=== PATIENT | female | born 1955 | race Two or more races ===

== ENCOUNTER 2020-06-15 13:24 | Outpatient (CLI) | payer MEDICARE, OTHER ==
[2020-06-15 14:41] LABS: APPEARANCE,URINE CLEAR (CLEAR); BILIRUBIN,URINE NEGATIVE (NEGATIVE); BLOOD, URINE LARGE Ery/uL (NEGATIVE); COLOR,URINE YELLOW (YELLOW); KETONES,URINE NEGATIVE (NEGATIVE); LEUKOCYTE ESTERASE ,URINE SMALL (NEGATIVE); NITRITE, URINE NEGATIVE (NEGATIVE); PROTEIN,URINE 100 mg/dl (NEGATIVE); UGLUCOSE NEGATIVE (NEGATIVE); UROBILINOGEN,URINE 0.2 EU/dL (0.2)
[2020-06-15 14:48] LABS: BASOPHILS % (AUTO) 0.5 % (0.0-2.0); EOSINOPHILS % (AUTO) 1.2 % (0.0-6.0); HEMATOCRIT 27 % (33-45); HEMOGLOBIN 8.8 g/dL (11.5-14.8); LYMPHOCYTES # (AUTO) 0.6 /CMM (0.8-4.8); LYMPHOCYTES % (AUTO) 10.8 % (20.0-44.0); MEAN CORPUSCULAR HGB CONC 33 g/dl (31.0-36.0); MEAN CORPUSCULAR VOLUME 99 fL (82-100); MONOCYTES # (AUTO) 0.4 /CMM (0.1-1.30); MONOCYTES % (AUTO) 6.5 % (2.0-12.0); NEUTROPHILS # (AUTO) 4.6 /CMM (1.8-8.9); PLATELET COUNT (AUTO) 250 /CMM (150-450); RED BLOOD CELL COUNT(AUTO) 2.68 MIL/uL (4.0-5.2); WHITE BLOOD COUNT (AUTO) 5.7 K/uL (4.3-11.0)
[2020-06-15 14:56] LABS: RBC,URINE 21-50 /HPF (0-2)
[2020-06-15 14:57] LABS: BACTERIA,URINE 3+ /HPF (None Seen); SQUAMOUS EPITHELIAL CELL,UR 0-2 /HPF (None Seen); WBC,URINE 21-50 /HPF (0-3)
[2020-06-15 15:13] LABS: CALCIUM, SERUM 8.8 mg/dL (8.5-10.1); CREATININE 1.9 mg/dL (0.6-1.3); MAGNESIUM 2.3 mg/dL (1.8-2.4); PHOSPHORUS 4.4 mg/dL (2.5-4.9); POTASSIUM 5.2 mmol/L (3.5-5.1)
== END 2020-06-15 23:59 | disposition home or self-care (01) ==
LOC: MSC 13:24
PROVIDERS: ATTEND Internal Medicine
DX: I12.9 Hypertensive chronic kidney disease with stage 1 through stage 4 chronic kidney disease, or unspecified chronic kidney disease (principal); N18.3 Chronic kidney disease, stage 3 (moderate); L97.929 Non-pressure chronic ulcer of unspecified part of left lower leg with unspecified severity; R80.9 Proteinuria, unspecified; D47.2 Monoclonal gammopathy; D64.9 Anemia, unspecified; G62.9 Polyneuropathy, unspecified; J30.9 Allergic rhinitis, unspecified; R31.9 Hematuria, unspecified; Z79.899 Other long term (current) drug therapy
CPT/HCPCS: 36415; 80048; 81001; 83735; 84100; 85025; 87086; G0463; 81000-TC

== ENCOUNTER 2021-02-19 11:34 | Outpatient (CLI) | payer MEDICARE, OTHER ==
[2021-02-19 12:54] LABS: BASOPHILS % (AUTO) 0.6 % (0.0-2.0); EOSINOPHILS % (AUTO) 0.3 % (0.0-6.0); HEMATOCRIT 28 % (33-45); HEMOGLOBIN 9.1 g/dL (11.5-14.8); LYMPHOCYTES # (AUTO) 0.6 /CMM (0.8-4.8); LYMPHOCYTES % (AUTO) 9.4 % (20.0-44.0); MEAN CORPUSCULAR HGB CONC 33 g/dl (31.0-36.0); MEAN CORPUSCULAR VOLUME 98 fL (82-100); MONOCYTES # (AUTO) 0.4 /CMM (0.1-1.30); MONOCYTES % (AUTO) 5.9 % (2.0-12.0); NEUTROPHILS % (AUTO) 83.8 % (43.0-81.0); PLATELET COUNT (AUTO) 222 /CMM (150-450); RED BLOOD CELL COUNT(AUTO) 2.81 MIL/uL (4.0-5.2)
[2021-02-19 13:35] LABS: ALBUMIN 2.9 g/dL (3.4-5.0); BILIRUBIN,TOTAL 0.5 mg/dL (0.2-1.0); CALCIUM, SERUM 8.8 mg/dL (8.5-10.1); CREATININE 2.4 mg/dL (0.6-1.3); MAGNESIUM 2.2 mg/dL (1.8-2.4); PHOSPHORUS 4.7 mg/dL (2.5-4.9); POTASSIUM 4.6 mmol/L (3.5-5.1); TOTAL PROTEIN, SERUM 6.8 g/dL (6.4-8.2)
== END 2021-02-19 23:59 | disposition home or self-care (01) ==
LOC: MSC 11:34
PROVIDERS: ATTEND Internal Medicine
DX: I12.9 Hypertensive chronic kidney disease with stage 1 through stage 4 chronic kidney disease, or unspecified chronic kidney disease (principal); N18.30 Chronic kidney disease, stage 3 unspecified; R80.9 Proteinuria, unspecified; D47.2 Monoclonal gammopathy; D50.9 Iron deficiency anemia, unspecified; G62.9 Polyneuropathy, unspecified; J30.9 Allergic rhinitis, unspecified; R31.9 Hematuria, unspecified; Z87.828 Personal history of other (healed) physical injury and trauma; Z79.01 Long term (current) use of anticoagulants; Z79.891 Long term (current) use of opiate analgesic; Z79.52 Long term (current) use of systemic steroids; Z79.899 Other long term (current) drug therapy
CPT/HCPCS: 36415; 80053; 83735; 84100; 85025; G0463

== ENCOUNTER 2021-09-26 11:11 | Outpatient (CLI) | payer MEDICARE, OTHER | END 2021-09-26 23:59 | disposition home or self-care (01) | LOC: MSC 11:11 | PROVIDERS: ATTEND Internal Medicine | DX: M79.641 Pain in right hand (principal); M54.10 Radiculopathy, site unspecified; F32.A Depression, unspecified; S91.109D Unspecified open wound of unspecified toe(s) without damage to nail, subsequent encounter; I12.9 Hypertensive chronic kidney disease with stage 1 through stage 4 chronic kidney disease, or unspecified chronic kidney disease; N18.30 Chronic kidney disease, stage 3 unspecified; R80.9 Proteinuria, unspecified; D47.2 Monoclonal gammopathy; D50.9 Iron deficiency anemia, unspecified; G62.9 Polyneuropathy, unspecified; R31.9 Hematuria, unspecified; Z87.828 Personal history of other (healed) physical injury and trauma; Z79.01 Long term (current) use of anticoagulants; Z79.891 Long term (current) use of opiate analgesic; Z79.52 Long term (current) use of systemic steroids; Z79.899 Other long term (current) drug therapy ==

== ENCOUNTER 2021-10-10 11:37 | Outpatient (CLI) | payer MEDICARE, OTHER | END 2021-10-10 23:59 | disposition home or self-care (01) | LOC: MRI 11:37 | PROVIDERS: ATTEND Internal Medicine | DX: M47.22 Other spondylosis with radiculopathy, cervical region (principal); M50.11 Cervical disc disorder with radiculopathy, high cervical region; M43.12 Spondylolisthesis, cervical region; M48.02 Spinal stenosis, cervical region | CPT/HCPCS: 72141-TC ==

== ENCOUNTER → 2021-12-13 | Outpatient (CLI) | payer MEDICARE, OTHER | END | disposition home or self-care (01) | LOC: MSC 09:45 | PROVIDERS: ATTEND Internal Medicine | DX: K59.03 Drug induced constipation (principal); G89.29 Other chronic pain; I12.9 Hypertensive chronic kidney disease with stage 1 through stage 4 chronic kidney disease, or unspecified chronic kidney disease; N18.30 Chronic kidney disease, stage 3 unspecified; M79.641 Pain in right hand; M54.10 Radiculopathy, site unspecified; F32.A Depression, unspecified; R80.9 Proteinuria, unspecified; D47.2 Monoclonal gammopathy; D50.9 Iron deficiency anemia, unspecified; S91.001D Unspecified open wound, right ankle, subsequent encounter; R31.9 Hematuria, unspecified; Z79.01 Long term (current) use of anticoagulants; G62.9 Polyneuropathy, unspecified; Z79.899 Other long term (current) drug therapy ==

== ENCOUNTER 2021-12-17 09:45 | Outpatient (CLI) | payer MEDICARE, OTHER | END 2021-12-17 23:59 | disposition home or self-care (01) | LOC: MSC 09:45 | PROVIDERS: ATTEND Internal Medicine | DX: K59.00 Constipation, unspecified (principal); G89.29 Other chronic pain; I12.9 Hypertensive chronic kidney disease with stage 1 through stage 4 chronic kidney disease, or unspecified chronic kidney disease; N18.30 Chronic kidney disease, stage 3 unspecified; M79.601 Pain in right arm; M54.10 Radiculopathy, site unspecified; F32.A Depression, unspecified; R80.9 Proteinuria, unspecified; D47.2 Monoclonal gammopathy; D50.9 Iron deficiency anemia, unspecified; S91.001D Unspecified open wound, right ankle, subsequent encounter; R31.9 Hematuria, unspecified; Z79.01 Long term (current) use of anticoagulants; Z79.899 Other long term (current) drug therapy ==

== ENCOUNTER → 2021-12-19 | Outpatient (CLI) | payer MEDICARE, OTHER | END | disposition home or self-care (01) | LOC: MSC 12:00 | PROVIDERS: ATTEND Internal Medicine | DX: D50.8 Other iron deficiency anemias (principal); K59.00 Constipation, unspecified; G89.29 Other chronic pain; I12.9 Hypertensive chronic kidney disease with stage 1 through stage 4 chronic kidney disease, or unspecified chronic kidney disease; N18.30 Chronic kidney disease, stage 3 unspecified; M79.601 Pain in right arm; M54.10 Radiculopathy, site unspecified; F32.A Depression, unspecified; R80.9 Proteinuria, unspecified; D47.2 Monoclonal gammopathy; S91.001D Unspecified open wound, right ankle, subsequent encounter; R31.9 Hematuria, unspecified; Z79.01 Long term (current) use of anticoagulants; G62.9 Polyneuropathy, unspecified; Z79.899 Other long term (current) drug therapy ==

== ENCOUNTER → 2021-12-24 | Outpatient (CLI) | payer MEDICARE, OTHER | END | disposition home or self-care (01) | LOC: MSC 14:00 | PROVIDERS: ATTEND Internal Medicine | DX: D64.89 Other specified anemias (principal); K59.03 Drug induced constipation; T40.605D Adverse effect of unspecified narcotics, subsequent encounter; G89.29 Other chronic pain; I12.9 Hypertensive chronic kidney disease with stage 1 through stage 4 chronic kidney disease, or unspecified chronic kidney disease; N18.30 Chronic kidney disease, stage 3 unspecified; M79.601 Pain in right arm; M54.10 Radiculopathy, site unspecified; F32.A Depression, unspecified; R80.9 Proteinuria, unspecified; D47.2 Monoclonal gammopathy; S91.001D Unspecified open wound, right ankle, subsequent encounter; R31.9 Hematuria, unspecified; Z79.01 Long term (current) use of anticoagulants; G62.9 Polyneuropathy, unspecified; Z79.899 Other long term (current) drug therapy ==

== ENCOUNTER 2022-01-23 11:08 | Outpatient (CLI) | payer MEDICARE, OTHER ==
[2022-01-23 18:34] LABS: ALBUMIN 2.8 g/dL (3.4-5.0); BILIRUBIN,TOTAL 0.2 mg/dL (0.2-1.0); CREATININE 2.5 mg/dL (0.6-1.3); TOTAL PROTEIN, SERUM 6.2 g/dL (6.4-8.2)
== END 2022-01-23 23:59 | disposition home or self-care (01) ==
LOC: MSC 11:08
PROVIDERS: ATTEND Internal Medicine
DX: D64.89 Other specified anemias (principal); I95.9 Hypotension, unspecified; R73.9 Hyperglycemia, unspecified; K59.03 Drug induced constipation; T40.605D Adverse effect of unspecified narcotics, subsequent encounter; G89.29 Other chronic pain; I12.9 Hypertensive chronic kidney disease with stage 1 through stage 4 chronic kidney disease, or unspecified chronic kidney disease; N18.30 Chronic kidney disease, stage 3 unspecified; M79.601 Pain in right arm; M54.10 Radiculopathy, site unspecified; F32.A Depression, unspecified; R80.9 Proteinuria, unspecified; D47.2 Monoclonal gammopathy; S91.001D Unspecified open wound, right ankle, subsequent encounter; G62.9 Polyneuropathy, unspecified; R31.9 Hematuria, unspecified; Z79.01 Long term (current) use of anticoagulants; Z79.899 Other long term (current) drug therapy
CPT/HCPCS: 36415; 80053; 83036; G0463

== ENCOUNTER → 2022-01-30 | Outpatient (CLI) | payer MEDICARE, OTHER | END | disposition home or self-care (01) | LOC: MSC 14:00 | PROVIDERS: ATTEND Internal Medicine | DX: D64.89 Other specified anemias (principal); I95.9 Hypotension, unspecified; R73.9 Hyperglycemia, unspecified; K59.03 Drug induced constipation; T40.605D Adverse effect of unspecified narcotics, subsequent encounter; G89.29 Other chronic pain; I12.9 Hypertensive chronic kidney disease with stage 1 through stage 4 chronic kidney disease, or unspecified chronic kidney disease; N18.30 Chronic kidney disease, stage 3 unspecified; Z79.01 Long term (current) use of anticoagulants; Z79.52 Long term (current) use of systemic steroids; M79.601 Pain in right arm; M54.10 Radiculopathy, site unspecified; F32.A Depression, unspecified; R80.9 Proteinuria, unspecified; D47.2 Monoclonal gammopathy; S91.001D Unspecified open wound, right ankle, subsequent encounter; G62.9 Polyneuropathy, unspecified; R31.9 Hematuria, unspecified; Z79.899 Other long term (current) drug therapy ==

== ENCOUNTER 2022-06-12 09:37 | Outpatient (CLI) | payer MEDICARE, OTHER ==
[2022-06-12 10:33] LABS: BASOPHILS # (AUTO) 0.1 K/uL (0.0-0.2); BASOPHILS % (AUTO) 1.1 % (0.0-2.0); EOSINOPHILS % (AUTO) 0.3 % (0.0-6.0); HEMATOCRIT 24 % (33-45); HEMOGLOBIN 7.9 g/dL (11.5-14.8); LYMPHOCYTES % (AUTO) 18.9 % (20.0-44.0); MEAN CORPUSCULAR HGB CONC 33 g/dl (31.0-36.0); MEAN CORPUSCULAR VOLUME 106 fL (82-100); MONOCYTES # (AUTO) 0.5 K/uL (0.1-1.30); MONOCYTES % (AUTO) 9.9 % (2.0-12.0); NEUTROPHILS # (AUTO) 3.6 K/uL (1.8-8.9); NEUTROPHILS % (AUTO) 69.8 % (43.0-81.0); PLATELET COUNT (AUTO) 212 K/uL (150-450); RED BLOOD CELL COUNT(AUTO) 2.29 MIL/uL (4.0-5.2); WHITE BLOOD COUNT (AUTO) 5.1 K/uL (4.3-11.0)
[2022-06-12 10:52] LABS: ALBUMIN 2.9 g/dL (3.4-5.0); BILIRUBIN,TOTAL 0.2 mg/dL (0.2-1.0); CALCIUM, SERUM 8.2 mg/dL (8.5-10.1); CREATININE 2.6 mg/dL (0.6-1.3); MAGNESIUM 4.5 mg/dL (1.8-2.4); PHOSPHORUS 6.8 mg/dL (2.5-4.9); TOTAL PROTEIN, SERUM 6.8 g/dL (6.4-8.2)
[2022-06-12 11:05] LABS: POTASSIUM 6.4 mmol/L (3.5-5.1)
[2022-06-12 12:16] LABS: BASOPHILS % (MANUAL) 0 % (0.0-2.0); EOSINOPHILS % (MANUAL) 1 % (0-4); LYMPHOCYTES % (MANUAL) 24 % (16-48); MONOCYTES % (MANUAL) 8 % (0-11.0); NEUTROPHILS % (MANUAL) 67 (42-76)
== END 2022-06-12 23:59 | disposition home or self-care (01) ==
LOC: MSC 09:37
PROVIDERS: ATTEND Internal Medicine
DX: E87.5 Hyperkalemia (principal); R22.2 Localized swelling, mass and lump, trunk; I12.9 Hypertensive chronic kidney disease with stage 1 through stage 4 chronic kidney disease, or unspecified chronic kidney disease; N18.30 Chronic kidney disease, stage 3 unspecified; Z79.01 Long term (current) use of anticoagulants; D64.89 Other specified anemias; I95.9 Hypotension, unspecified; R73.9 Hyperglycemia, unspecified; K59.03 Drug induced constipation; T40.605D Adverse effect of unspecified narcotics, subsequent encounter; G89.29 Other chronic pain; M79.601 Pain in right arm; M54.10 Radiculopathy, site unspecified; F32.A Depression, unspecified; R80.9 Proteinuria, unspecified; D47.2 Monoclonal gammopathy; S91.001D Unspecified open wound, right ankle, subsequent encounter; G62.9 Polyneuropathy, unspecified; R31.9 Hematuria, unspecified; Z79.899 Other long term (current) drug therapy
CPT/HCPCS: 85025; 83735; 84100; 36415; 80053; 85007; G0463

== ENCOUNTER 2022-06-13 14:09 | Outpatient (CLI) | payer MEDICARE, OTHER ==
[2022-06-13 15:54] LABS: CALCIUM, SERUM 8.1 mg/dL (8.5-10.1); CREATININE 2.7 mg/dL (0.6-1.3); POTASSIUM 5.6 mmol/L (3.5-5.1)
== END 2022-06-13 23:59 | disposition home or self-care (01) ==
LOC: LAB 14:09
PROVIDERS: ATTEND Internal Medicine
DX: N18.30 Chronic kidney disease, stage 3 unspecified (principal)
CPT/HCPCS: 36415; 80048-TC; 83880

== ENCOUNTER 2022-06-16 11:15 | Outpatient (CLI) | payer MEDICARE, OTHER ==
[2022-06-16 12:50] LABS: CALCIUM, SERUM 8.1 mg/dL (8.5-10.1); CREATININE 2.8 mg/dL (0.6-1.3)
== END 2022-06-16 23:59 | disposition home or self-care (01) ==
LOC: LAB 11:15
PROVIDERS: ATTEND Internal Medicine
DX: N18.9 Chronic kidney disease, unspecified (principal); E78.5 Hyperlipidemia, unspecified
CPT/HCPCS: 36415; 80048-TC

== ENCOUNTER 2022-06-17 11:06 | Outpatient (CLI) | payer MEDICARE, OTHER | END 2022-06-17 23:59 | disposition home or self-care (01) | LOC: US 11:06 | PROVIDERS: ATTEND Internal Medicine | DX: K80.20 Calculus of gallbladder without cholecystitis without obstruction (principal); K86.89 Other specified diseases of pancreas; N28.1 Cyst of kidney, acquired; D73.89 Other diseases of spleen; R22.9 Localized swelling, mass and lump, unspecified | CPT/HCPCS: 76700-TC ==

== ENCOUNTER 2022-08-12 09:15 | Outpatient (CLI) | payer MEDICARE, OTHER | END 2022-08-12 23:59 | disposition home or self-care (01) | LOC: MSC 09:15 | PROVIDERS: ATTEND Internal Medicine | DX: Z51.89 Encounter for other specified aftercare (principal); E87.5 Hyperkalemia; R22.2 Localized swelling, mass and lump, trunk; I12.9 Hypertensive chronic kidney disease with stage 1 through stage 4 chronic kidney disease, or unspecified chronic kidney disease; N18.30 Chronic kidney disease, stage 3 unspecified; Z79.01 Long term (current) use of anticoagulants; D64.89 Other specified anemias; I95.9 Hypotension, unspecified; R73.9 Hyperglycemia, unspecified; K59.03 Drug induced constipation; T40.605D Adverse effect of unspecified narcotics, subsequent encounter; G89.29 Other chronic pain; M79.601 Pain in right arm; F32.A Depression, unspecified; R80.9 Proteinuria, unspecified; D47.2 Monoclonal gammopathy; S91.001D Unspecified open wound, right ankle, subsequent encounter; G62.9 Polyneuropathy, unspecified; R31.9 Hematuria, unspecified; Z79.899 Other long term (current) drug therapy ==

== ENCOUNTER 2022-10-21 10:30 | Outpatient (CLI) | payer MEDICARE, OTHER | END 2022-10-21 23:59 | disposition home or self-care (01) | LOC: MSC 10:30 | PROVIDERS: ATTEND Internal Medicine | DX: R31.9 Hematuria, unspecified (principal); L65.9 Nonscarring hair loss, unspecified; R53.81 Other malaise; I12.9 Hypertensive chronic kidney disease with stage 1 through stage 4 chronic kidney disease, or unspecified chronic kidney disease; N18.30 Chronic kidney disease, stage 3 unspecified; Z79.01 Long term (current) use of anticoagulants; S91.109D Unspecified open wound of unspecified toe(s) without damage to nail, subsequent encounter; R22.2 Localized swelling, mass and lump, trunk; G89.29 Other chronic pain; D64.89 Other specified anemias; I95.9 Hypotension, unspecified; R73.9 Hyperglycemia, unspecified; K59.03 Drug induced constipation; T40.605D Adverse effect of unspecified narcotics, subsequent encounter; M79.601 Pain in right arm; G62.9 Polyneuropathy, unspecified; F32.A Depression, unspecified; R80.9 Proteinuria, unspecified; D47.2 Monoclonal gammopathy; S91.001D Unspecified open wound, right ankle, subsequent encounter; Z79.899 Other long term (current) drug therapy ==

== ENCOUNTER 2022-12-16 14:45 | Outpatient (CLI) | payer MEDICARE, OTHER | END 2022-12-16 23:59 | disposition home or self-care (01) | LOC: MSC 14:45 | PROVIDERS: ATTEND Internal Medicine | DX: I12.9 Hypertensive chronic kidney disease with stage 1 through stage 4 chronic kidney disease, or unspecified chronic kidney disease (principal); N18.30 Chronic kidney disease, stage 3 unspecified; Z79.01 Long term (current) use of anticoagulants; E87.5 Hyperkalemia; R31.9 Hematuria, unspecified; L65.9 Nonscarring hair loss, unspecified; R53.81 Other malaise; S91.109D Unspecified open wound of unspecified toe(s) without damage to nail, subsequent encounter; R22.2 Localized swelling, mass and lump, trunk; G89.29 Other chronic pain; D64.89 Other specified anemias; I95.9 Hypotension, unspecified; R73.9 Hyperglycemia, unspecified; K59.03 Drug induced constipation; T40.605D Adverse effect of unspecified narcotics, subsequent encounter; M79.601 Pain in right arm; G62.9 Polyneuropathy, unspecified; F32.A Depression, unspecified; R80.9 Proteinuria, unspecified; D47.2 Monoclonal gammopathy; S91.001D Unspecified open wound, right ankle, subsequent encounter; Z79.899 Other long term (current) drug therapy ==

== ENCOUNTER → 2022-12-18 | Outpatient (CLI) | payer MEDICARE, OTHER | END | disposition home or self-care (01) | LOC: MSC 15:30 | PROVIDERS: ATTEND Internal Medicine | DX: I12.9 Hypertensive chronic kidney disease with stage 1 through stage 4 chronic kidney disease, or unspecified chronic kidney disease (principal); N18.30 Chronic kidney disease, stage 3 unspecified; E87.5 Hyperkalemia; R31.9 Hematuria, unspecified; L65.9 Nonscarring hair loss, unspecified; R53.81 Other malaise; S91.109D Unspecified open wound of unspecified toe(s) without damage to nail, subsequent encounter; R22.2 Localized swelling, mass and lump, trunk; G89.29 Other chronic pain; D64.89 Other specified anemias; I95.9 Hypotension, unspecified; R73.9 Hyperglycemia, unspecified; K59.03 Drug induced constipation; T40.605D Adverse effect of unspecified narcotics, subsequent encounter; M79.601 Pain in right arm; G62.9 Polyneuropathy, unspecified; F32.A Depression, unspecified; R80.9 Proteinuria, unspecified; D47.2 Monoclonal gammopathy; S91.001D Unspecified open wound, right ankle, subsequent encounter; Z79.899 Other long term (current) drug therapy ==

== ENCOUNTER 2023-02-17 11:30 | Outpatient (CLI) | payer MEDICARE, OTHER | END 2023-02-17 23:59 | disposition home or self-care (01) | LOC: MSC 11:30 | PROVIDERS: ATTEND Internal Medicine | DX: I12.9 Hypertensive chronic kidney disease with stage 1 through stage 4 chronic kidney disease, or unspecified chronic kidney disease (principal); N18.30 Chronic kidney disease, stage 3 unspecified; N28.1 Cyst of kidney, acquired; K86.2 Cyst of pancreas; E87.5 Hyperkalemia; E78.5 Hyperlipidemia, unspecified; S91.109D Unspecified open wound of unspecified toe(s) without damage to nail, subsequent encounter; G89.29 Other chronic pain; D64.89 Other specified anemias; I95.9 Hypotension, unspecified; R73.9 Hyperglycemia, unspecified; K59.03 Drug induced constipation; T40.605D Adverse effect of unspecified narcotics, subsequent encounter; M79.601 Pain in right arm; G62.9 Polyneuropathy, unspecified; F32.A Depression, unspecified; R80.9 Proteinuria, unspecified; D47.2 Monoclonal gammopathy ==

== ENCOUNTER → 2023-02-27 | Outpatient (CLI) | payer MEDICARE, OTHER | END | disposition home or self-care (01) | LOC: MSC 15:00 | PROVIDERS: ATTEND Internal Medicine | DX: S92.301A Fracture of unspecified metatarsal bone(s), right foot, initial encounter for closed fracture (principal); W10.9XXA Fall (on) (from) unspecified stairs and steps, initial encounter; I12.9 Hypertensive chronic kidney disease with stage 1 through stage 4 chronic kidney disease, or unspecified chronic kidney disease; N18.30 Chronic kidney disease, stage 3 unspecified; N28.1 Cyst of kidney, acquired; K86.2 Cyst of pancreas; R31.9 Hematuria, unspecified; E87.5 Hyperkalemia; E78.5 Hyperlipidemia, unspecified; G89.29 Other chronic pain; D64.89 Other specified anemias; I95.9 Hypotension, unspecified; R73.9 Hyperglycemia, unspecified; K59.03 Drug induced constipation; T40.605D Adverse effect of unspecified narcotics, subsequent encounter; M79.601 Pain in right arm; G62.9 Polyneuropathy, unspecified; F32.A Depression, unspecified; R80.9 Proteinuria, unspecified; D47.2 Monoclonal gammopathy ==

== ENCOUNTER → 2023-04-10 | Outpatient (CLI) | payer MEDICARE, OTHER | END | disposition home or self-care (01) | LOC: MSC 14:00 | PROVIDERS: ATTEND Internal Medicine | DX: I12.9 Hypertensive chronic kidney disease with stage 1 through stage 4 chronic kidney disease, or unspecified chronic kidney disease (principal); N18.30 Chronic kidney disease, stage 3 unspecified; N28.1 Cyst of kidney, acquired; S92.301D Fracture of unspecified metatarsal bone(s), right foot, subsequent encounter for fracture with routine healing; K86.2 Cyst of pancreas; R31.9 Hematuria, unspecified; E87.5 Hyperkalemia; E78.5 Hyperlipidemia, unspecified; G89.29 Other chronic pain; D64.89 Other specified anemias; I95.9 Hypotension, unspecified; R73.9 Hyperglycemia, unspecified; K59.03 Drug induced constipation; T40.605D Adverse effect of unspecified narcotics, subsequent encounter; M79.601 Pain in right arm; G62.9 Polyneuropathy, unspecified; F32.A Depression, unspecified; R80.9 Proteinuria, unspecified; D47.2 Monoclonal gammopathy ==

== ENCOUNTER → 2024-04-06 | Outpatient (CLI) | payer MEDICARE, OTHER | END | disposition home or self-care (01) | LOC: MSC 14:30 | PROVIDERS: ATTEND Internal Medicine | DX: I12.0 Hypertensive chronic kidney disease with stage 5 chronic kidney disease or end stage renal disease (principal); N18.5 Chronic kidney disease, stage 5; E87.20 Acidosis, unspecified; D64.89 Other specified anemias; E87.5 Hyperkalemia; N28.1 Cyst of kidney, acquired; K86.2 Cyst of pancreas; R80.9 Proteinuria, unspecified; K59.00 Constipation, unspecified; D47.2 Monoclonal gammopathy; G62.9 Polyneuropathy, unspecified; R73.9 Hyperglycemia, unspecified; S91.109D Unspecified open wound of unspecified toe(s) without damage to nail, subsequent encounter; G89.29 Other chronic pain; S92.301D Fracture of unspecified metatarsal bone(s), right foot, subsequent encounter for fracture with routine healing ==

== ENCOUNTER 2024-05-10 11:22 | Inpatient (IN) | payer MEDICARE, OTHER ==
[~2024-05-10] VITALS: Ht 149.9 cm; Wt 58.5 kg
[2024-05-10 08:50] VITALS: BP 163/82; TEMP 98.2; O2SAT 98
[2024-05-10 12:21] LABS: BASOPHILS # (AUTO) 0.1 K/uL (0.0-0.2); BASOPHILS % (AUTO) 0.7 % (0.0-2.0); EOSINOPHILS # (AUTO) 0.1 K/uL (0.0-0.7); EOSINOPHILS % (AUTO) 1.5 % (0.0-6.0); HEMATOCRIT 26 % (33-45); HEMOGLOBIN 8.4 g/dL (11.5-14.8); LYMPHOCYTES # (AUTO) 0.3 K/uL (0.8-4.8); LYMPHOCYTES % (AUTO) 4.1 % (20.0-44.0); MEAN CORPUSCULAR HEMOGLOBIN 32 PG (26.0-33.0); MEAN CORPUSCULAR HGB CONC 33 g/dl (31.0-36.0); MEAN CORPUSCULAR VOLUME 97 fL (82-100); MONOCYTES # (AUTO) 0.5 K/uL (0.1-1.30); MONOCYTES % (AUTO) 6.1 % (2.0-12.0); NEUTROPHILS # (AUTO) 6.9 K/uL (1.8-8.9); NEUTROPHILS % (AUTO) 87.6 % (43.0-81.0); PLATELET COUNT (AUTO) 153 K/uL (150-450); RED BLOOD CELL COUNT(AUTO) 2.63 MIL/uL (4.0-5.2); RED CELL DISTRIBUTION WIDTH 15.5 % (11.5-15.0); WHITE BLOOD COUNT (AUTO) 7.8 K/uL (4.3-11.0)
[2024-05-10 12:30] LABS: CARBON DIOXIDE 21 mmol/L (21-32); CHLORIDE 108 mmol/L (98-107); CREATININE 6.6 mg/dL (0.6-1.3); GLUCOSE 107 mg/dL (74-106); POTASSIUM 4.4 mmol/L (3.5-5.1); SODIUM SERUM 139 mmol/L (136-145); UREA NITROGEN, BLOOD 69 mg/dL (7-18)
[2024-05-10 12:31] LABS: INR 0.91 (0.91-1.10); PARTIAL THROMBOPLASTIN TIME 25.6 SEC (24.3-34.3); PROTHROMBIN TIME 9.4 SECS (9.2-11.1)
[2024-05-10 12:42] LABS: ALANINE AMINOTRANSFERASE 17 U/L (12-78); ALBUMIN 2.4 g/dL (3.4-5.0); ALKALINE PHOSPHATASE 35 U/L (46-116); ASPARTATE AMINOTRANSFERASE 19 U/L (15-37); BILIRUBIN,DIRECT 0.1 mg/dL (0.0-0.2); BILIRUBIN,TOTAL 0.2 mg/dL (0.2-1.0); NT-PRO BNP 14528 pg/mL (0-125); TOTAL PROTEIN, SERUM 6.2 g/dL (6.4-8.2)
[2024-05-10] MEDS ORDERED: NIFE60TA73 PO (15:55)
[2024-05-10] MEDS ORDERED: PRED5TAB PO (15:55)
[2024-05-10] MEDS ORDERED: NITR1OIN2 TD (15:55)
[2024-05-10] MEDS ORDERED: CALCIUM PO (15:55)
[2024-05-10] MEDS ORDERED: CARV12.52 PO (15:55)
[2024-05-10] MEDS ORDERED: HYDR-4076 PO (15:55)
[2024-05-10] MEDS ORDERED: SODI15OR5 PO (15:55)
[2024-05-10] MEDS ORDERED: VITAMIN D3 PO (15:55)
[2024-05-10 16:00] VITALS: BP 157/80; TEMP 98.4; O2SAT 98
[2024-05-10] MEDS ORDERED: Z GUARD REMEDY 4 OZ OINT TP PRN (16:30)
[2024-05-10] MEDS ORDERED: ZOLPIDEM TARTRATE 5 MG TABLET PO PRN (16:30)
[2024-05-10] MEDS: ACETAMINOPHEN 325 MG TABLET PO PRN (18:41)
[2024-05-11 04:50] VITALS: BP 196/92; TEMP 97.8; O2SAT 97
[2024-05-11] MEDS: hydrALAZINE HCL IV 20 MG VIAL IV ONE ×2 (04:50→12:46)
[2024-05-11 06:38] VITALS: BP 154/84; TEMP 98.2; O2SAT 97
[2024-05-11 07:26] LABS: BASOPHILS % (AUTO) 0.5 % (0.0-2.0); EOSINOPHILS # (AUTO) 0.1 K/uL (0.0-0.7); EOSINOPHILS % (AUTO) 2.3 % (0.0-6.0); LYMPHOCYTES # (AUTO) 0.6 K/uL (0.8-4.8); LYMPHOCYTES % (AUTO) 9.2 % (20.0-44.0); MEAN CORPUSCULAR HEMOGLOBIN 33 PG (26.0-33.0); MEAN CORPUSCULAR HGB CONC 34 g/dl (31.0-36.0); MEAN CORPUSCULAR VOLUME 97 fL (82-100); MONOCYTES # (AUTO) 0.4 K/uL (0.1-1.30); MONOCYTES % (AUTO) 6.4 % (2.0-12.0); NEUTROPHILS % (AUTO) 81.6 % (43.0-81.0); PLATELET COUNT (AUTO) 115 K/uL (150-450); RED BLOOD CELL COUNT(AUTO) 2.09 MIL/uL (4.0-5.2); RED CELL DISTRIBUTION WIDTH 14.9 % (11.5-15.0); WHITE BLOOD COUNT (AUTO) 6.1 K/uL (4.3-11.0)
[2024-05-11 07:30] VITALS: BP 198/85; TEMP 98.1; O2SAT 94
[2024-05-11] MEDS: PANTOPRAZOLE 40 MG TABLET.DR PO SCH (07:30)
[2024-05-11 07:35] LABS: CALCIUM, SERUM 7.1 mg/dL (8.5-10.1); CREATININE 6.5 mg/dL (0.6-1.3); POTASSIUM 4.3 mmol/L (3.5-5.1)
[2024-05-11 07:41] LABS: HEMATOCRIT 20 % (33-45)
[2024-05-11 08:13] LABS: THYROID STIMULATING HORMONE 2.26 uIU/mL (0.358-3.74)
[2024-05-11] MEDS ORDERED: IOHEXOL 0 ML IV ONE (08:20)
[2024-05-11] MEDS ORDERED: HEPARIN SODIUM, PORCINE 1,000 UNIT/ML VIAL ONE ×2 (08:20→08:42)
[2024-05-11] MEDS ORDERED: LIDOCAINE HCL/MPF 1% 30 ML VIAL IJ ONE (08:20)
[2024-05-11] MEDS ORDERED: IOHEXOL 240MG/ML 0 ML IV ONE (08:38)
[2024-05-11 12:07] LABS: ALBUMIN 1.8 g/dL (3.4-5.0); BILIRUBIN,DIRECT 0.1 mg/dL (0.0-0.2); BILIRUBIN,TOTAL 0.3 mg/dL (0.2-1.0); TOTAL PROTEIN, SERUM 5.1 g/dL (6.4-8.2)
[2024-05-11] MEDS: SEVELAMER CARBONATE 800 MG TABLET PO SCH (13:00)
[2024-05-11] MEDS ORDERED: FENTANYL PF 100MCG/2ML AMPUL ONE (13:28)
[2024-05-11] MEDS: CARVEDILOL 12.5 MG TABLET PO SCH (15:08)
[2024-05-11] MEDS: predniSONE 5 MG TABLET PO SCH (15:08)
[2024-05-11] MEDS: hydrALAZINE HCL 25 MG TABLET PO SCH (15:09)
[2024-05-11] MEDS: NIFEDIPINE XL 60 MG TAB.ER.24 PO ONE (15:09)
[2024-05-11] MEDS: EPOETIN ALFA (10,000 UNIT) 10,000 UNIT/ML VIAL SQ SCH (15:10)
[2024-05-11 16:00] VITALS: BP 211/84; TEMP 98.5; O2SAT 93
[2024-05-11] MEDS: NITROGLYCERIN PACKET 1 GM PACKET TD SCH (16:53)
[2024-05-11 20:00] VITALS: BP 123/55; TEMP 99.3; O2SAT 93
[2024-05-12] VITALS: BP 152/75; TEMP 98.6; O2SAT 94
[2024-05-12] MEDS: HYDROCODONE/APAP 5/325MG TABLET PO PRN (00:53)
[2024-05-12 04:00] VITALS: BP 138/73; TEMP 98.5; O2SAT 94
[2024-05-12 07:09] LABS: BASOPHILS % (AUTO) 0.7 % (0.0-2.0); EOSINOPHILS % (AUTO) 0.8 % (0.0-6.0); HEMATOCRIT 22 % (33-45); HEMOGLOBIN 7.2 g/dL (11.5-14.8); LYMPHOCYTES # (AUTO) 0.7 K/uL (0.8-4.8); MEAN CORPUSCULAR HEMOGLOBIN 33 PG (26.0-33.0); MEAN CORPUSCULAR HGB CONC 34 g/dl (31.0-36.0); MEAN CORPUSCULAR VOLUME 98 fL (82-100); MONOCYTES # (AUTO) 0.4 K/uL (0.1-1.30); MONOCYTES % (AUTO) 7.7 % (2.0-12.0); NEUTROPHILS # (AUTO) 4.3 K/uL (1.8-8.9); NEUTROPHILS % (AUTO) 77.8 % (43.0-81.0); PLATELET COUNT (AUTO) 116 K/uL (150-450); RED CELL DISTRIBUTION WIDTH 14.5 % (11.5-15.0); WHITE BLOOD COUNT (AUTO) 5.5 K/uL (4.3-11.0)
[2024-05-12 07:30] VITALS: BP 157/82; TEMP 98.3; O2SAT 93
[2024-05-12 07:56] LABS: ALBUMIN 1.7 g/dL (3.4-5.0); BILIRUBIN,TOTAL 0.3 mg/dL (0.2-1.0); CALCIUM, SERUM 7.7 mg/dL (8.5-10.1); CREATININE 5.1 mg/dL (0.6-1.3); PHOSPHORUS 5.1 mg/dL (2.5-4.9); POTASSIUM 3.9 mmol/L (3.5-5.1); TOTAL PROTEIN, SERUM 5.1 g/dL (6.4-8.2)
[2024-05-12] MEDS: VIT B CMPLX 3/FA/VIT C/BIOTIN 1 TAB TABLET PO SCH (08:27)
[2024-05-12] MEDS: NIFEdipine XL (30MG) 30 MG TAB PO SCH (08:28)
[2024-05-12] MEDS: ONDANSETRON HCL/PF 4 MG/2 ML VIAL IVP PRN (09:53)
[2024-05-12] MEDS: ANCEF 1 GM/50 ML D5W IV SCH (11:41)
[2024-05-12 13:07] LABS: HEPATITIS B CORE AB, IgM Negative (Negative); HEPATITIS B CORE AB, TOTAL Negative (Negative); HEPATITIS B SURFACE AB Non Reactive (.)
[2024-05-12 20:00] VITALS: BP 138/77; TEMP 98.6; O2SAT 99
[2024-05-13] VITALS: BP 138/77; TEMP 98.1; O2SAT 97
[2024-05-13 04:00] VITALS: BP 180/75; TEMP 97.8; O2SAT 95
[2024-05-13] MEDS: hydrALAZINE HCL IV 20 MG VIAL IV ONE (05:27)
[2024-05-13 07:01] LABS: BASOPHILS % (AUTO) 0.3 % (0.0-2.0); EOSINOPHILS # (AUTO) 0.1 K/uL (0.0-0.7); EOSINOPHILS % (AUTO) 1.4 % (0.0-6.0); HEMATOCRIT 22 % (33-45); HEMOGLOBIN 7.7 g/dL (11.5-14.8); LYMPHOCYTES # (AUTO) 1.1 K/uL (0.8-4.8); LYMPHOCYTES % (AUTO) 16.8 % (20.0-44.0); MEAN CORPUSCULAR HEMOGLOBIN 34 PG (26.0-33.0); MEAN CORPUSCULAR HGB CONC 35 g/dl (31.0-36.0); MEAN CORPUSCULAR VOLUME 96 fL (82-100); MONOCYTES # (AUTO) 0.5 K/uL (0.1-1.30); MONOCYTES % (AUTO) 8.5 % (2.0-12.0); NEUTROPHILS # (AUTO) 4.7 K/uL (1.8-8.9); PLATELET COUNT (AUTO) 113 K/uL (150-450); RED CELL DISTRIBUTION WIDTH 14.7 % (11.5-15.0); WHITE BLOOD COUNT (AUTO) 6.4 K/uL (4.3-11.0)
[2024-05-13 07:27] LABS: ALBUMIN 1.8 g/dL (3.4-5.0); BILIRUBIN,TOTAL 0.2 mg/dL (0.2-1.0); CREATININE 4.5 mg/dL (0.6-1.3); MAGNESIUM 2.1 mg/dL (1.8-2.4); PHOSPHORUS 3.9 mg/dL (2.5-4.9); POTASSIUM 3.8 mmol/L (3.5-5.1); TOTAL PROTEIN, SERUM 5.4 g/dL (6.4-8.2)
[2024-05-13 08:00] VITALS: BP 156/69; TEMP 98.1; O2SAT 95
[2024-05-13] MEDS ORDERED: SODIUM POLYSTYRENE SULFONATE 15 G/60 ML BOTTLE PO SCH (09:00)
[2024-05-13 12:00] VITALS: BP 138/73; TEMP 97.9; O2SAT 97
[2024-05-13] MEDS: hydrALAZINE HCL 25 MG TABLET PO SCH (12:21)
[2024-05-13 16:00] VITALS: BP 170/73; TEMP 98.4; O2SAT 95
[2024-05-13 20:00] VITALS: BP 138/71; TEMP 98.2; O2SAT 96
[2024-05-14 04:00] VITALS: BP 160/90; TEMP 97.6; O2SAT 94
[2024-05-14 04:09] VITALS: BP 160/90
[2024-05-14 07:24] LABS: BASOPHILS % (AUTO) 0.6 % (0.0-2.0); EOSINOPHILS # (AUTO) 0.1 K/uL (0.0-0.7); EOSINOPHILS % (AUTO) 1.2 % (0.0-6.0); HEMATOCRIT 21 % (33-45); HEMOGLOBIN 7.1 g/dL (11.5-14.8); LYMPHOCYTES # (AUTO) 0.9 K/uL (0.8-4.8); LYMPHOCYTES % (AUTO) 13.3 % (20.0-44.0); MEAN CORPUSCULAR HEMOGLOBIN 33 PG (26.0-33.0); MEAN CORPUSCULAR HGB CONC 35 g/dl (31.0-36.0); MEAN CORPUSCULAR VOLUME 96 fL (82-100); MONOCYTES # (AUTO) 0.6 K/uL (0.1-1.30); MONOCYTES % (AUTO) 9.5 % (2.0-12.0); NEUTROPHILS # (AUTO) 5.1 K/uL (1.8-8.9); NEUTROPHILS % (AUTO) 75.4 % (43.0-81.0); PLATELET COUNT (AUTO) 106 K/uL (150-450); RED BLOOD CELL COUNT(AUTO) 2.14 MIL/uL (4.0-5.2); RED CELL DISTRIBUTION WIDTH 14.2 % (11.5-15.0); WHITE BLOOD COUNT (AUTO) 6.7 K/uL (4.3-11.0)
[2024-05-14 07:46] LABS: ALBUMIN 1.6 g/dL (3.4-5.0); ALKALINE PHOSPHATASE 35 U/L (46-116); ASPARTATE AMINOTRANSFERASE 9 U/L (15-37); BILIRUBIN,TOTAL 0.2 mg/dL (0.2-1.0); CALCIUM, SERUM 7.5 mg/dL (8.5-10.1); CARBON DIOXIDE 25 mmol/L (21-32); CHLORIDE 100 mmol/L (98-107); CREATININE 3.7 mg/dL (0.6-1.3); GLUCOSE 97 mg/dL (74-106); PHOSPHORUS 3.3 mg/dL (2.5-4.9); POTASSIUM 3.7 mmol/L (3.5-5.1); SODIUM SERUM 133 mmol/L (136-145); TOTAL PROTEIN, SERUM 4.9 g/dL (6.4-8.2); UREA NITROGEN, BLOOD 21 mg/dL (7-18)
[2024-05-14 07:57] LABS: ALANINE AMINOTRANSFERASE < 6 U/L (12-78)
[2024-05-14 08:00] VITALS: BP 159/81; TEMP 98.6; O2SAT 96
[2024-05-14 16:00] VITALS: BP 144/74; TEMP 98.4; O2SAT 96
[2024-05-14 20:00] VITALS: BP 148/63; TEMP 98.6; O2SAT 96
[2024-05-15 08:00] VITALS: BP 190/87; TEMP 98.2; O2SAT 96
[2024-05-15 12:53] LABS: CALCIUM, SERUM 7.6 mg/dL (8.5-10.1); CREATININE 4.1 mg/dL (0.6-1.3); POTASSIUM 3.8 mmol/L (3.5-5.1)
[2024-05-15 13:25] LABS: BASOPHILS % (AUTO) 0.8 % (0.0-2.0); EOSINOPHILS % (AUTO) 0.8 % (0.0-6.0); HEMATOCRIT 21 % (33-45); HEMOGLOBIN 7.2 g/dL (11.5-14.8); LYMPHOCYTES # (AUTO) 0.3 K/uL (0.8-4.8); LYMPHOCYTES % (AUTO) 7.6 % (20.0-44.0); MEAN CORPUSCULAR HEMOGLOBIN 32 PG (26.0-33.0); MEAN CORPUSCULAR HGB CONC 34 g/dl (31.0-36.0); MEAN CORPUSCULAR VOLUME 95 fL (82-100); MONOCYTES # (AUTO) 0.2 K/uL (0.1-1.30); MONOCYTES % (AUTO) 4.1 % (2.0-12.0); NEUTROPHILS # (AUTO) 3.6 K/uL (1.8-8.9); NEUTROPHILS % (AUTO) 86.7 % (43.0-81.0); PLATELET COUNT (AUTO) 123 K/uL (150-450); RED BLOOD CELL COUNT(AUTO) 2.25 MIL/uL (4.0-5.2); RED CELL DISTRIBUTION WIDTH 13.8 % (11.5-15.0); WHITE BLOOD COUNT (AUTO) 4.1 K/uL (4.3-11.0)
[2024-05-15 16:00] VITALS: BP 148/85; TEMP 98.6; O2SAT 97
[2024-05-15 20:59] VITALS: BP 142/76; TEMP 99; O2SAT 95
[2024-05-16 08:00] VITALS: BP 155/87; TEMP 98.6; O2SAT 98
[2024-05-16 08:23] VITALS: BP 155/87
[2024-05-16 09:09] LABS: BASOPHILS # (AUTO) 0.1 K/uL (0.0-0.2); BASOPHILS % (AUTO) 0.8 % (0.0-2.0); EOSINOPHILS # (AUTO) 0.1 K/uL (0.0-0.7); EOSINOPHILS % (AUTO) 0.8 % (0.0-6.0); HEMATOCRIT 23 % (33-45); HEMOGLOBIN 7.8 g/dL (11.5-14.8); LYMPHOCYTES # (AUTO) 0.7 K/uL (0.8-4.8); LYMPHOCYTES % (AUTO) 9.2 % (20.0-44.0); MEAN CORPUSCULAR HEMOGLOBIN 33 PG (26.0-33.0); MEAN CORPUSCULAR HGB CONC 34 g/dl (31.0-36.0); MEAN CORPUSCULAR VOLUME 96 fL (82-100); MONOCYTES # (AUTO) 0.5 K/uL (0.1-1.30); MONOCYTES % (AUTO) 6.8 % (2.0-12.0); NEUTROPHILS # (AUTO) 5.9 K/uL (1.8-8.9); NEUTROPHILS % (AUTO) 82.4 % (43.0-81.0); PLATELET COUNT (AUTO) 112 K/uL (150-450); RED BLOOD CELL COUNT(AUTO) 2.39 MIL/uL (4.0-5.2); RED CELL DISTRIBUTION WIDTH 13.9 % (11.5-15.0); WHITE BLOOD COUNT (AUTO) 7.2 K/uL (4.3-11.0)
[2024-05-16 09:18] LABS: CALCIUM, SERUM 8.7 mg/dL (8.5-10.1); CREATININE 4.1 mg/dL (0.6-1.3); POTASSIUM 3.6 mmol/L (3.5-5.1)
== END 2024-05-16 13:05 | disposition home health service (06) | DRG 673 ==
LOC: ER 11:38 → TELE 14:19 → MED 05-14 10:43
PROC: 0JH63XZ Insertion of Tunneled Vascular Access Device into Chest Subcutaneous Tissue and Fascia, Percutaneous Approach (ICD-10-PCS; principal; 2024-05-11)
PROC: 05HM33Z Insertion of Infusion Device into Right Internal Jugular Vein, Percutaneous Approach (ICD-10-PCS; 2024-05-11)
PROC: B513YZA Fluoroscopy of Right Jugular Veins using Other Contrast, Guidance (ICD-10-PCS; 2024-05-11)
PROC: 5A1D70Z Performance of Urinary Filtration, Intermittent, Less than 6 Hours Per Day (ICD-10-PCS; 2024-05-11)
DX: I12.0 Hypertensive chronic kidney disease with stage 5 chronic kidney disease or end stage renal disease (principal); N18.6 End stage renal disease; I77.6 Arteritis, unspecified; D63.1 Anemia in chronic kidney disease; Z20.822 Contact with and (suspected) exposure to COVID-19; I73.9 Peripheral vascular disease, unspecified; Z88.0 Allergy status to penicillin; Z88.1 Allergy status to other antibiotic agents; Z79.899 Other long term (current) drug therapy; M89.8X9 Other specified disorders of bone, unspecified site
CPT/HCPCS: 36415; 71045-TC; 80048-TC; 80053-TC; 80061-TC; 80076-TC; 83735-TC; 83880; 84100-TC; 84443-TC; 84484-TC; 85025-TC; 85730-TC; 86704; 86705; 86706; 86803; 86850-TC; 87340; 90935-TC; 93970-TC; A4223; C1750; G0378; J0360; J0690; J0885; J1644; J2405; J2704; J3010; J3490; J7030; J7050; J7060; J7512; Q9966; Q9967

== ENCOUNTER 2024-06-01 11:39 | Day surgery (SDC) | payer MEDICARE, OTHER ==
[~2024-06-01] VITALS: Ht 149.9 cm; Wt 60.0 kg
[~2024-06-01 11:39] MED LIST: CALCIUM PO; CARV12.52 PO; HYDR-4076 PO; NIFE60TA73 PO; NITR1OIN2 TD; PRED5TAB PO; SODI15OR5 PO; VITAMIN D3 PO
[2024-06-01] MEDS ORDERED: CELLULOSE,OXIDIZED 1 EA PACK MC ONE (12:15)
[2024-06-01] MEDS ORDERED: IOHEXOL 0 ML IV ONE (12:15)
[2024-06-01] MEDS ORDERED: LIDOCAINE HCL/MPF 1% 30 ML VIAL IJ ONE (12:15)
[2024-06-01] MEDS ORDERED: CELLULOSE,OXIDIZED 1 PKT EACH MC ONE (12:16)
[2024-06-01] MEDS ORDERED: CELLULOSE,OXIDIZED 1 EACH EACH MC ONE (12:16)
[2024-06-01 12:37] LABS: BASOPHILS # (AUTO) 0.2 K/uL (0.0-0.2); BASOPHILS % (AUTO) 2.2 % (0.0-2.0); EOSINOPHILS % (AUTO) 0.2 % (0.0-6.0); HEMATOCRIT 23 % (33-45); HEMOGLOBIN 7.8 g/dL (11.5-14.8); LYMPHOCYTES # (AUTO) 0.6 K/uL (0.8-4.8); MEAN CORPUSCULAR HEMOGLOBIN 32 PG (26.0-33.0); MEAN CORPUSCULAR HGB CONC 34 g/dl (31.0-36.0); MEAN CORPUSCULAR VOLUME 95 fL (82-100); MONOCYTES # (AUTO) 0.6 K/uL (0.1-1.30); MONOCYTES % (AUTO) 7.9 % (2.0-12.0); NEUTROPHILS # (AUTO) 6.5 K/uL (1.8-8.9); NEUTROPHILS % (AUTO) 81.7 % (43.0-81.0); PLATELET COUNT (AUTO) 102 K/uL (150-450); RED BLOOD CELL COUNT(AUTO) 2.42 MIL/uL (4.0-5.2); RED CELL DISTRIBUTION WIDTH 16.3 % (11.5-15.0); WHITE BLOOD COUNT (AUTO) 7.9 K/uL (4.3-11.0)
[2024-06-01 13:01] LABS: CALCIUM, SERUM 7.5 mg/dL (8.5-10.1); CREATININE 4.5 mg/dL (0.6-1.3); POTASSIUM 2.9 mmol/L (3.5-5.1)
[2024-06-01] MEDS ORDERED: ROCURONIUM BROMIDE 50 MG/5 ML ONE (13:02)
[2024-06-01] MEDS: POTASSIUM CL. PREMIX PERIPHER. 50 ML IV SCH (13:30)
[2024-06-01] MEDS ORDERED: ROPIVACAINE HCL 0.5% 5 MG/ML 30ML VIAL ONE (13:43)
[2024-06-01] MEDS ORDERED: hydrALAZINE HCL IV 20 MG VIAL ONE (14:46)
[2024-06-01] MEDS ORDERED: ACETAMINOPHEN 325 MG TABLET PO PRN (15:00)
[2024-06-01] MEDS: hydrALAZINE HCL IV 20 MG VIAL IV ONE (15:00)
[2024-06-01 15:15] VITALS: BP 135/71; TEMP 98.2; O2SAT 95
[2024-06-01 15:30] VITALS: BP 136/73; TEMP 98; O2SAT 95
[2024-06-01 15:45] VITALS: BP 126/67; TEMP 98.2; O2SAT 97
[2024-06-01 16:00] VITALS: BP 118/67; TEMP 97.9; O2SAT 97
[2024-06-01 16:20] VITALS: BP 137/68; TEMP 98.4; O2SAT 92
== END 2024-06-01 18:55 | disposition home or self-care (01) ==
LOC: DS 11:39
PROVIDERS: ATTEND Surgery Vascular Surgery
DX: I12.0 Hypertensive chronic kidney disease with stage 5 chronic kidney disease or end stage renal disease (principal); N18.6 End stage renal disease; Z99.2 Dependence on renal dialysis
CPT/HCPCS: 36825; 85025; 80048; 36415; 86850; J0690; J2704; J1644 ×2; J0360; J0330; J7030; J2795; J3490 ×2; J3480; Q9967

== ENCOUNTER 2024-07-13 09:05 | Outpatient (CLI) | payer MEDICARE, OTHER | END 2024-07-13 23:59 | disposition home or self-care (01) | LOC: WOU 09:05 | PROVIDERS: ATTEND Surgery Vascular Surgery | DX: I12.0 Hypertensive chronic kidney disease with stage 5 chronic kidney disease or end stage renal disease (principal); N18.6 End stage renal disease ==

== ENCOUNTER 2024-08-10 09:43 | Day surgery (SDC) | payer MEDICARE, OTHER ==
[~2024-08-10] VITALS: Ht 149.9 cm; Wt 54.4 kg
[2024-08-10 10:35] LABS: BASOPHILS # (AUTO) 0.1 K/uL (0.0-0.2); BASOPHILS % (AUTO) 2.4 % (0.0-2.0); EOSINOPHILS % (AUTO) 0.4 % (0.0-6.0); HEMATOCRIT 31 % (33-45); HEMOGLOBIN 9.9 g/dL (11.5-14.8); LYMPHOCYTES # (AUTO) 0.4 K/uL (0.8-4.8); LYMPHOCYTES % (AUTO) 6.9 % (20.0-44.0); MEAN CORPUSCULAR HEMOGLOBIN 30 PG (26.0-33.0); MEAN CORPUSCULAR HGB CONC 32 g/dl (31.0-36.0); MEAN CORPUSCULAR VOLUME 92 fL (82-100); MONOCYTES # (AUTO) 0.4 K/uL (0.1-1.30); MONOCYTES % (AUTO) 7.8 % (2.0-12.0); NEUTROPHILS # (AUTO) 4.7 K/uL (1.8-8.9); NEUTROPHILS % (AUTO) 82.5 % (43.0-81.0); PLATELET COUNT (AUTO) 130 K/uL (150-450); RED BLOOD CELL COUNT(AUTO) 3.36 MIL/uL (4.0-5.2); RED CELL DISTRIBUTION WIDTH 16.6 % (11.5-15.0); WHITE BLOOD COUNT (AUTO) 5.7 K/uL (4.3-11.0)
[2024-08-10 10:41] LABS: CALCIUM, SERUM 8.3 mg/dL (8.5-10.1); CREATININE 5.7 mg/dL (0.6-1.3); POTASSIUM 4.5 mmol/L (3.5-5.1)
[2024-08-10] MEDS ORDERED: HEPARIN SODIUM, PORCINE 1,000 UNIT/ML VIAL ONE (10:58)
[2024-08-10] MEDS ORDERED: LIDOCAINE 1% INJ 50 ML MDV IJ ONE (10:58)
[2024-08-10] MEDS ORDERED: GELATIN SPONGE,ABSORBABLE 1 EA SPONGE TP ONE (10:58)
[2024-08-10] MEDS ORDERED: CELLULOSE,OXIDIZED 1 EA PACK MC ONE (10:58)
[2024-08-10] MEDS ORDERED: CELLULOSE,OXIDIZED 1 EACH EACH MC ONE (10:59)
[2024-08-10] MEDS ORDERED: THROMBIN (BOVINE) 5,000 UNITS VIAL TP ONE (10:59)
[2024-08-10 11:05] LABS: INR 1.01 (0.91-1.10); PARTIAL THROMBOPLASTIN TIME 30.8 SEC (24.3-34.3); PROTHROMBIN TIME 10.7 SECS (9.2-11.1)
[2024-08-10] MEDS ORDERED: ROPIVACAINE HCL 0.5% 5 MG/ML 30ML VIAL ONE (11:48)
[2024-08-10] MEDS ORDERED: CLINDAMYCIN IV RTU IN D5W 50 ML ONE (12:38)
[2024-08-10] MEDS ORDERED: FENTANYL PF 100MCG/2ML AMPUL ONE (12:39)
[2024-08-10] MEDS ORDERED: ROCURONIUM BROMIDE 50 MG/5 ML ONE (12:42)
[2024-08-10] MEDS ORDERED: POLYMYXIN B SULFATE 500,000 UNITS ONE (14:01)
[2024-08-10] MEDS ORDERED: ANESTHESIA TRAY IN PYXIS 1 EA TRAY MC ONE (15:43)
[2024-08-10] MEDS ORDERED: HYDROCODONE/APAP 5/325MG TABLET PO PRN (16:30)
[2024-08-10] MEDS ORDERED: FOLI0.8T23 PO (16:40)
[2024-08-10] MEDS ORDERED: HYDR-4077 PO (16:40)
[2024-08-10] MEDS: HYDROCODONE/APAP 5/325MG TABLET PO PRN (17:07)
== END 2024-08-10 19:00 | disposition home or self-care (01) ==
LOC: DS 09:43 → MED 14:23 → UNDOADMIN 14:23 → DS 19:00 → UNDODISIN 19:25
PROVIDERS: ATTEND Surgery Vascular Surgery
DX: I12.0 Hypertensive chronic kidney disease with stage 5 chronic kidney disease or end stage renal disease (principal); N18.6 End stage renal disease; G89.29 Other chronic pain; Z99.2 Dependence on renal dialysis; Z79.899 Other long term (current) drug therapy; Z86.2 Personal history of diseases of the blood and blood-forming organs and certain disorders involving the immune mechanism
CPT/HCPCS: 36825; 85025; 80048; 36415; 85730; J1100; J2704; J3010; J3490 ×4; J1644 ×2; J2405; J7030; J2795; C1769; C1768; G0378

== ENCOUNTER 2024-10-11 16:34 | Emergency (ER) | payer MEDICARE, OTHER ==
[~2024-10-11 16:34] MED LIST changes: -CALCIUM PO; +FOLI0.8T23 PO; -HYDR-4076 PO; +HYDR-4077 PO; -NITR1OIN2 TD; -SODI15OR5 PO; -VITAMIN D3 PO
== END 2024-10-11 18:32 | disposition home or self-care (01) ==
LOC: ER 16:37
DX: R03.0 Elevated blood-pressure reading, without diagnosis of hypertension (principal); Z53.21 Procedure and treatment not carried out due to patient leaving prior to being seen by health care provider

== ENCOUNTER 2024-10-11 18:53 | Emergency (ER) | payer MEDICARE, OTHER ==
[~2024-10-11] VITALS: Ht 157.5 cm; Wt 54.9 kg
[2024-10-11 19:29] VITALS: BP 169/63; TEMP 98; O2SAT 98
== END 2024-10-11 19:30 | disposition home or self-care (01) ==
LOC: ER 18:57
DX: I12.0 Hypertensive chronic kidney disease with stage 5 chronic kidney disease or end stage renal disease (principal); N18.6 End stage renal disease; Z79.52 Long term (current) use of systemic steroids; Z99.2 Dependence on renal dialysis; Z88.0 Allergy status to penicillin; Z88.1 Allergy status to other antibiotic agents

== ENCOUNTER 2025-06-22 17:55 | Inpatient (IN) | payer MEDICARE, OTHER ==
[~2025-06-22] VITALS: Ht 149.9 cm; Wt 44.9 kg
[2025-06-22] MEDS: IV NS 0.9% 1,000 ML BAG IV ONE (18:10)
[2025-06-22] MEDS ORDERED: ACETAMINOPHEN ES 500 MG TABLET ONE (18:11)
[2025-06-22] MEDS: CEFEPIME 1 GM in IV D5W 50 ML IV ONE (18:15)
[2025-06-22 18:25] LABS: PLATELET COUNT (AUTO) 116 K/uL (150-450); RED BLOOD CELL COUNT(AUTO) 2.58 MIL/uL (4.0-5.2); RED CELL DISTRIBUTION WIDTH 16.8 % (11.5-15.0); WHITE BLOOD COUNT (AUTO) 15.1 K/uL (4.3-11.0)
[2025-06-22 18:29] LABS: CALCIUM, SERUM 8.0 mg/dL (8.5-10.1); CREATININE 2.0 mg/dL (0.6-1.3); SODIUM SERUM 131 mmol/L (136-145); UREA NITROGEN, BLOOD 14 mg/dL (7-18)
[2025-06-22] MEDS: ACETAMINOPHEN ES 500 MG TABLET PO ONE (18:30)
[2025-06-22 18:36] LABS: INR 1.08 (0.91-1.10)
[2025-06-22 18:37] LABS: ASPARTATE AMINOTRANSFERASE 23 U/L (15-37); TOTAL PROTEIN, SERUM 5.5 g/dL (6.4-8.2)
[2025-06-22 18:40] LABS: LACTIC ACID 2.0 mmol/L (0.4-2.0)
[2025-06-22] MEDS: VANCOMYCIN 1 GM in IV D5W 250 ML IV ONE (19:15)
[2025-06-22] MEDS ORDERED: ALBUTEROL FS 2.5 MG/3 ML VIAL.NEB NEB PRN (20:00)
[2025-06-22] MEDS ORDERED: ONDANSETRON HCL/PF 4 MG/2 ML VIAL IVP PRN (20:00)
[2025-06-22] MEDS ORDERED: IPRATROPIUM NEB FS 0.5 MG/2.5 ML AMPUL.NEB NEB PRN (20:00)
[2025-06-22] MEDS ORDERED: DOSING PER PHARMACY-CEFEPIME IVPB XX PRN (20:00)
[2025-06-22] MEDS ORDERED: DOSING PER PHARMACY-VANCOMYCIN IV XX PRN (20:00)
[2025-06-23] VITALS: BP 180/76; TEMP 98.6; O2SAT 100
[2025-06-23] MEDS: hydrALAZINE HCL IV 20 MG VIAL IV PRN (01:59)
[2025-06-23 04:00] VITALS: BP 160/81; TEMP 98.1; O2SAT 100
[2025-06-23 06:52] LABS: ASPARTATE AMINOTRANSFERASE 20.0 U/L (15-37); CALCIUM, SERUM 7.7 mg/dL (8.5-10.1); CREATININE 2.5 mg/dL (0.6-1.3); PHOSPHORUS 2.8 mg/dL (2.5-4.9); SODIUM SERUM 131.0 mmol/L (136-145); TOTAL PROTEIN, SERUM 5.3 g/dL (6.4-8.2); UREA NITROGEN, BLOOD 18.0 mg/dL (7-18)
[2025-06-23] MEDS: PANTOPRAZOLE 40 MG TABLET.DR PO SCH (06:53)
[2025-06-23 07:10] LABS: PLATELET COUNT (AUTO) 97 K/uL (150-450); RED BLOOD CELL COUNT(AUTO) 2.35 MIL/uL (4.0-5.2); RED CELL DISTRIBUTION WIDTH 16.4 % (11.5-15.0); WHITE BLOOD COUNT (AUTO) 8.1 K/uL (4.3-11.0)
[2025-06-23 08:00] VITALS: BP 144/93; TEMP 97.9; O2SAT 99
[2025-06-23] MEDS ORDERED: CLOP75TA15 PO (08:52)
[2025-06-23] MEDS ORDERED: SEVE800T7 PO (08:52)
[2025-06-23] MEDS ORDERED: BISA10SU11 RC (08:52)
[2025-06-23] MEDS ORDERED: BISA-79 PO (08:52)
[2025-06-23] MEDS ORDERED: AMLO10TA4 PO (08:52)
[2025-06-23] MEDS ORDERED: PRED1TAB PO (08:52)
[2025-06-23] MEDS ORDERED: OXYC-128 PO (08:52)
[2025-06-23] MEDS ORDERED: METO25TA6 PO (08:52)
[2025-06-23] MEDS ORDERED: ACET-868 PO (08:52)
[2025-06-23] MEDS ORDERED: NITR1OIN2 TD (08:52)
[2025-06-23] MEDS ORDERED: SENN-261 PO (08:52)
[2025-06-23] MEDS ORDERED: GABA100C PO (08:52)
[2025-06-23] MEDS ORDERED: LEVE500T9 PO (08:52)
[2025-06-23] MEDS ORDERED: DOCU100T2 PO (08:52)
[2025-06-23] MEDS ORDERED: HYDR-4077 PO (08:52)
[2025-06-23] MEDS: NIFEdipine XL (30MG) 30 MG TAB PO SCH (09:22)
[2025-06-23 12:00] VITALS: BP 150/93; TEMP 98.1; O2SAT 99
[2025-06-23] MEDS: NITROGLYCERIN 30 GM TUBE TP SCH (12:58)
[2025-06-23 16:00] VITALS: BP 142/76; TEMP 98.1; O2SAT 100
[2025-06-23] MEDS: CEFEPIME 1 GM in IV D5W 50 ML IV SCH (17:25)
[2025-06-23] MEDS: MAGNESIUM HYDROXIDE 30 ML UDC PO PRN (17:33)
[2025-06-23 20:00] VITALS: BP 134/70; TEMP 98.4; O2SAT 100
[2025-06-24] VITALS: BP 127/71; TEMP 97.9; O2SAT 100
[2025-06-24 04:00] VITALS: BP 130/75; TEMP 97.5; O2SAT 100
[2025-06-24 04:12] LABS: TOTAL PROTEIN,PLEURAL FLUID 2.15
[2025-06-24 08:00] VITALS: BP 154/72; TEMP 98.3; O2SAT 100
[2025-06-24 08:20] LABS: CALCIUM, SERUM 8.0 mg/dL (8.5-10.1); CREATININE 3.6 mg/dL (0.6-1.3); PHOSPHORUS 3.4 mg/dL (2.5-4.9); SODIUM SERUM 135.0 mmol/L (136-145); UREA NITROGEN, BLOOD 28.0 mg/dL (7-18)
[2025-06-24 08:36] LABS: PLATELET COUNT (AUTO) 95 K/uL (150-450); RED BLOOD CELL COUNT(AUTO) 2.33 MIL/uL (4.0-5.2); RED CELL DISTRIBUTION WIDTH 16.0 % (11.5-15.0); WHITE BLOOD COUNT (AUTO) 5.7 K/uL (4.3-11.0)
[2025-06-24] MEDS: LEVETIRACETAM (250 MG) 250 MG TABLET PO SCH (11:17)
[2025-06-24 11:28] LABS: LYMPHOCYTES % (MANUAL) 13 % (16-48); MONOCYTES % (MANUAL) 4 % (0-11.0); NEUTROPHILS % (MANUAL) 83 (42-76); PLATELET ESTIMATE DECREASED
[2025-06-24] MEDS: SEVELAMER CARBONATE 800 MG TABLET PO SCH (12:42)
[2025-06-24] MEDS: NITROGLYCERIN PACKET 1 GM PACKET TD SCH (12:43)
[2025-06-24 16:00] VITALS: BP 143/69; TEMP 98.2; O2SAT 100
[2025-06-24] MEDS: METOPROLOL TARTRATE 25 MG TABLET PO SCH (16:25)
[2025-06-24] MEDS: GABAPENTIN 100 MG CAPSULE PO SCH (16:25)
[2025-06-24 20:00] VITALS: BP 150/84; TEMP 98.1; O2SAT 94
[2025-06-25] VITALS: BP 122/74; TEMP 98.4; O2SAT 100
[2025-06-25] MEDS: VANCOMYCIN POST DIALYSIS 500MG IV PRN (00:11)
[2025-06-25 07:19] LABS: PLATELET COUNT (AUTO) 84 K/uL (150-450); RED BLOOD CELL COUNT(AUTO) 2.29 MIL/uL (4.0-5.2); RED CELL DISTRIBUTION WIDTH 16.0 % (11.5-15.0); WHITE BLOOD COUNT (AUTO) 5.5 K/uL (4.3-11.0)
[2025-06-25 07:42] LABS: CALCIUM, SERUM 7.7 mg/dL (8.5-10.1); CREATININE 2.5 mg/dL (0.6-1.3); PHOSPHORUS 2.6 mg/dL (2.5-4.9); SODIUM SERUM 141.0 mmol/L (136-145); UREA NITROGEN, BLOOD 15.0 mg/dL (7-18)
[2025-06-25 08:00] VITALS: BP 135/67; TEMP 97.1; O2SAT 100
[2025-06-25] MEDS: CLOPIDOGREL BISULFATE 75 MG TABLET PO SCH (08:46)
[2025-06-25] MEDS: AMLODIPINE BESYLATE 10 MG TABLET PO SCH (08:47)
[2025-06-25] MEDS: POTASSIUM CHLORIDE 20 MEQ TAB.PRT.SR PO SCH (10:16)
[2025-06-25 10:39] LABS: LYMPHOCYTES % (MANUAL) 5 % (16-48); MONOCYTES % (MANUAL) 1 % (0-11.0); NEUTROPHILS % (MANUAL) 94 (42-76); PLATELET ESTIMATE DECREASED
[2025-06-25] MEDS: POTASSIUM CHLORIDE 10 MEQ TABLET.SA PO ONE (11:41)
[2025-06-25 16:00] VITALS: BP 127/65; TEMP 98.2; O2SAT 100
[2025-06-25 20:00] VITALS: BP 119/67; TEMP 98.4; O2SAT 100
[2025-06-26] VITALS: BP 120/64; TEMP 98.2; O2SAT 97
[2025-06-26 06:38] LABS: CALCIUM, SERUM 7.8 mg/dL (8.5-10.1); CREATININE 4.1 mg/dL (0.6-1.3); PHOSPHORUS 2.5 mg/dL (2.5-4.9); SODIUM SERUM 138.0 mmol/L (136-145); UREA NITROGEN, BLOOD 32.0 mg/dL (7-18)
[2025-06-26 06:48] LABS: PLATELET COUNT (AUTO) 94 K/uL (150-450); RED BLOOD CELL COUNT(AUTO) 2.19 MIL/uL (4.0-5.2); RED CELL DISTRIBUTION WIDTH 16.3 % (11.5-15.0); WHITE BLOOD COUNT (AUTO) 4.2 K/uL (4.3-11.0)
[2025-06-26 08:00] VITALS: BP 133/65; TEMP 97.9; O2SAT 97
[2025-06-26 08:55] LABS: LYMPHOCYTES % (MANUAL) 9 % (16-48); MONOCYTES % (MANUAL) 2 % (0-11.0); NEUTROPHILS % (MANUAL) 89 (42-76); PLATELET ESTIMATE DECREASED
[2025-06-26 16:00] VITALS: BP 129/65; TEMP 97.9; O2SAT 97
[2025-06-26] MEDS: ACETAMINOPHEN 325 MG TABLET PO PRN (20:27)
[2025-06-27] VITALS (7 sets, daily range): BP systolic 123–168; BP diastolic 60–79; TEMP 98–101.7; O2SAT 97–100
[2025-06-27 00:06] LABS: HEPATITIS B SURFACE AB (QUAL) Non Reactive (.)
[2025-06-27] MEDS: oxyCODONE/APAP (5/325 MG) 1 UDTAB TABLET PO PRN (06:41)
[2025-06-27] MEDS: hydrALAZINE HCL IV 20 MG VIAL IV ONE (07:00)
[2025-06-28] VITALS: BP 118/63; TEMP 98.2; O2SAT 99
[2025-06-28 04:00] VITALS: BP 133/69; TEMP 97.3; O2SAT 100
[2025-06-28 07:39] LABS: CALCIUM, SERUM 7.8 mg/dL (8.5-10.1); CREATININE 4.6 mg/dL (0.6-1.3); SODIUM SERUM 134.0 mmol/L (136-145); UREA NITROGEN, BLOOD 55.0 mg/dL (7-18)
[2025-06-28 08:00] VITALS: BP 144/68; TEMP 98.2; O2SAT 100
[2025-06-28 12:00] VITALS: BP 120/64; TEMP 97.1; O2SAT 98
[2025-06-28 16:00] VITALS: BP 129/67; TEMP 97.4; O2SAT 98
[2025-06-28 20:00] VITALS: BP 140/76; TEMP 97.7; O2SAT 98
[2025-06-29] VITALS: BP 168/76; TEMP 97.7; O2SAT 100
[2025-06-29 04:00] VITALS: BP 147/80; TEMP 97.7; O2SAT 100
[2025-06-29 07:52] LABS: CALCIUM, SERUM 7.9 mg/dL (8.5-10.1); CREATININE 3.2 mg/dL (0.6-1.3); SODIUM SERUM 138.0 mmol/L (136-145); UREA NITROGEN, BLOOD 30.0 mg/dL (7-18)
[2025-06-29 08:00] VITALS: BP 174/74; TEMP 97.9; O2SAT 100
[2025-06-29 12:00] VITALS: BP 96/57; TEMP 98.1; O2SAT 99
== END 2025-06-29 14:20 | disposition home health service (06) | DRG 871 ==
LOC: ER 17:58 → TELE1 22:06
PROVIDERS: ADMIT Nurse Practitioner Family; ATTEND Nurse Practitioner Acute Care
PROC: 5A1D70Z Performance of Urinary Filtration, Intermittent, Less than 6 Hours Per Day (ICD-10-PCS; principal; 2025-06-24)
PROC: 0W993ZX Drainage of Right Pleural Cavity, Percutaneous Approach, Diagnostic (ICD-10-PCS; 2025-06-26)
DX: A41.9 Sepsis, unspecified organism (principal); J96.01 Acute respiratory failure with hypoxia; N18.6 End stage renal disease; I12.0 Hypertensive chronic kidney disease with stage 5 chronic kidney disease or end stage renal disease; J90 Pleural effusion, not elsewhere classified; E87.1 Hypo-osmolality and hyponatremia; I73.01 Raynaud's syndrome with gangrene; E87.6 Hypokalemia; E86.0 Dehydration; Z99.2 Dependence on renal dialysis; Z20.822 Contact with and (suspected) exposure to COVID-19; Z89.422 Acquired absence of other left toe(s); Z89.421 Acquired absence of other right toe(s); I73.9 Peripheral vascular disease, unspecified; Z88.0 Allergy status to penicillin; Z88.1 Allergy status to other antibiotic agents; Z86.79 Personal history of other diseases of the circulatory system; Z99.81 Dependence on supplemental oxygen; E87.70 Fluid overload, unspecified; L89.156 Pressure-induced deep tissue damage of sacral region; R23.4 Changes in skin texture; Z79.02 Long term (current) use of antithrombotics/antiplatelets; Z79.899 Other long term (current) drug therapy; D63.1 Anemia in chronic kidney disease; N25.0 Renal osteodystrophy
CPT/HCPCS: 36415; 71045-TC; 71250-TC; 80048-TC; 80076-TC; 80202-TC; 83605-TC; 83735-TC; 84100-TC; 84155-TC; 84443-TC; 84484-TC; 85025-TC; 85027-TC; 85730-TC; 86706; 87040-TC; 87070-TC; 87075-TC; 87340; 90935-TC; A4223; G0378; J0360; J0692; J3373; J7030; J7050; J7060; J7512